=== PATIENT | male | born 1965 | race Caucasian/White ===

== ENCOUNTER 2017-07-06 19:51 | Emergency (ER) | payer SELFPAY ==
[~2017-07-06] VITALS: Ht 185.4 cm; Wt 127.0 kg
[~2017-07-06 19:51] MED LIST: ASPIRIN CHEWABL81 M1 PO; AUGMENTIN 875 M1 TA1 PO; CIPRO500 MG PO; CIPROFLOXACIN500 MG PO; FLOMAX0.4 MG PO; Lopressor25 MG PO; NAPROSYN500 MG PO; NITROSTAT0.4 MG SL; NKHM; PERCOCET 325 MG1 TA2 PO; PERCOCET 325 MG1 TA7 PO; PRILOSEC20 MG PO; Percocet 325 MG1 TAB PO; TOBRADEX 0.1%-0.5 ML OPH; VICODIN 5/500 505 MG PO; ZOFRAN ODT4 MG SL; ZOFRAN4 MG PO; [UNRECOGNIZED DRUG - REMARK]
[2017-07-06 20:29] LABS: BASO # 0.1 10*3/uL (0.0-0.1); BASO % 0.5 % (0.0-1.0); EOS # 0.2 10*3/uL (0.0-0.4); EOS % 1.2 % (1.0-4.0); HEMATOCRIT 49.7 % (42.0-52.0); HEMOGLOBIN 17.2 g/dl (14.0-18.0); LYMPH # 1.2 10*3/uL (1.3-4.4); LYMPH % 9.9 % (27.0-41.0); MEAN CELL VOLUME 90.4 fl (80.0-94.0); MEAN CORPUSCULAR HGB 31.3 pg (27.0-31.0); MEAN CORPUSCULAR HGB CONC 34.6 g/dl (33.0-37.0); MEAN PLATELET VOLUME 10.5 fl (9.6-12.3); MONO # 0.7 10*3/uL (0.1-1.0); MONO % 5.7 % (3.0-9.0); NEUT # 10.1 10*3/uL (2.3-7.9); NEUT % 82.4 % (47.0-73.0); PLATELET COUNT AUTOMATED 243 10*3/uL (130-400); RED CELL DISTRI WIDTH 12.3 % (0-14.5); WHITE BLOOD COUNT 12.3 10*3/uL (4.8-10.8)
[2017-07-06 20:44] LABS: ALBUMIN 4.6 gm/dl (3.1-4.5); ALKALINE PHOSPHATASE 60 U/L (45-117); BUN 18 mg/dl (7-24); CHLORIDE 105 mmol/L (98-107); CREATININE 1.03 mg/dL (0.70-1.30); LIPASE 311 U/L (73-393); POTASSIUM 4.7 mmol/L (3.5-5.1); SGOT/AST 20 IU/L (3-35); SGPT/ALT 45 U/L (12-78); SODIUM 138 mmol/L (136-145); TOTAL PROTEIN 8.2 gm/dL (6.4-8.2)
[2017-07-06] MEDS ORDERED: ZOFRAN ODT4 MG SL (21:10)
== END 2017-07-06 21:20 | disposition home or self-care (01) ==
LOC: ED 19:51
PROVIDERS: Physician Assistant
DX: A08.4 Viral intestinal infection, unspecified (principal); Z79.899 Other long term (current) drug therapy; Z79.82 Long term (current) use of aspirin

== ENCOUNTER 2018-10-01 09:39 | Emergency (ER) | payer SELFPAY ==
[~2018-10-01] VITALS: Ht 185.4 cm; Wt 131.5 kg
[2018-10-01] MEDS ORDERED: CEPHALEXIN500 M1 PO (09:53)
== END 2018-10-01 10:36 | disposition home or self-care (01) ==
LOC: ED 09:39
DX: S61.412A Laceration without foreign body of left hand, initial encounter (principal); Z23 Encounter for immunization; W45.8XXA Other foreign body or object entering through skin, initial encounter; Y93.89 Activity, other specified; Y92.89 Other specified places as the place of occurrence of the external cause; Y99.8 Other external cause status

== ENCOUNTER → 2024-03-18 | Outpatient (CLI) | payer SELFPAY ==
[~2024-03-18] MED LIST changes: +CEPHALEXIN500 M1 PO
[2024-03-18 13:21] LABS: BASO # 0.1 10*3/uL (0.0-0.1); BASO % 0.8 % (0.0-1.0); EOS # 0.1 10*3/uL (0.0-0.4); EOS % 1.6 % (1.0-4.0); HEMATOCRIT 45.6 % (42.0-52.0); MEAN CELL VOLUME 90.3 fl (80.0-94.0); MEAN CORPUSCULAR HGB 30.9 pg (27.0-31.0); MEAN CORPUSCULAR HGB CONC 34.2 g/dl (33.0-37.0); MEAN PLATELET VOLUME 9.8 fl (9.6-12.3); MONO # 0.6 10*3/uL (0.1-1.0); MONO % 7.3 % (3.0-9.0); NEUT # 4.5 10*3/uL (2.3-7.9); NEUT % 56.9 % (47.0-73.0); PLATELET COUNT AUTOMATED 238 10*3/uL (130-400); RED BLOOD COUNT 5.05 10*6/uL (4.50-5.90); RED CELL DISTRI WIDTH 12.2 % (0-14.5)
[2024-03-18 13:47] LABS: ALKALINE PHOSPHATASE 60 U/L (46-116); BUN 17 mg/dl (9-23); CHLORIDE 105 mmol/L (98-107); CHOLESTEROL 138 mg/dL (<200); LDL CHOLESTEROL 54 mg/dL (9-159); POTASSIUM 4.1 mmol/L (3.4-5.1); SGPT/ALT 31 U/L (5-49); TOTAL PROTEIN 7.1 gm/dL (6.0-8.0); TRIGLYCERIDES 223 mg/dl (<150)
== END | disposition home or self-care (01) ==
LOC: LAB 12:33
PROVIDERS: ATTEND Nurse Practitioner Family
DX: Z13.29 Encounter for screening for other suspected endocrine disorder (principal); Z13.1 Encounter for screening for diabetes mellitus; I10 Essential (primary) hypertension; R91.1 Solitary pulmonary nodule; E78.2 Mixed hyperlipidemia

== ENCOUNTER → 2024-10-30 | Outpatient (CLI) | payer SELFPAY | END | disposition home or self-care (01) | LOC: RESCLI 15:45 | PROVIDERS: ATTEND Internal Medicine | DX: I10 Essential (primary) hypertension (principal); R91.1 Solitary pulmonary nodule; E78.2 Mixed hyperlipidemia; I99.8 Other disorder of circulatory system; F10.10 Alcohol abuse, uncomplicated; Z79.899 Other long term (current) drug therapy; Z79.82 Long term (current) use of aspirin ==

== ENCOUNTER → 2024-12-30 | Outpatient (CLI) | payer MEDICAID | END | disposition home or self-care (01) | LOC: LAB 17:12 | PROVIDERS: ATTEND Nurse Practitioner Family | DX: L02.91 Cutaneous abscess, unspecified (principal) ==

== ENCOUNTER → 2025-01-31 | Outpatient (CLI) | payer OTHER ==
[~2025-01-31] MED LIST changes: +ATORVASTATIN CA40 M1 PO; +HYDROCHLOROTHIA25 M1 PO; +HYDROCODONE-AC1 EAC1 PO; +LISINOPRIL10 M1 PO
== END | disposition home or self-care (01) ==
LOC: WOUNDCARE 03:42
PROVIDERS: ATTEND Nurse Practitioner Family
DX: L02.91 Cutaneous abscess, unspecified (principal); L98.A1 Non-pressure chronic ulcer of upper arm; I10 Essential (primary) hypertension; E78.5 Hyperlipidemia, unspecified; Z87.891 Personal history of nicotine dependence

== ENCOUNTER → 2025-02-04 | Outpatient (CLI) | payer OTHER | END | disposition home or self-care (01) | LOC: CT 01:46 | PROVIDERS: ATTEND Nurse Practitioner Family | DX: I25.10 Atherosclerotic heart disease of native coronary artery without angina pectoris (principal); J98.11 Atelectasis; R91.1 Solitary pulmonary nodule; I70.0 Atherosclerosis of aorta; K80.20 Calculus of gallbladder without cholecystitis without obstruction; N20.0 Calculus of kidney; M47.814 Spondylosis without myelopathy or radiculopathy, thoracic region; M25.70 Osteophyte, unspecified joint ==

== ENCOUNTER → 2025-02-07 | Outpatient (CLI) | payer OTHER | LOC: WOUNDCARE 02:49 | PROVIDERS: ATTEND Nurse Practitioner Family | DX: L02.414 Cutaneous abscess of left upper limb (principal); L98.A1 Non-pressure chronic ulcer of upper arm; I10 Essential (primary) hypertension; E78.5 Hyperlipidemia, unspecified; L02.91 Cutaneous abscess, unspecified; Z87.891 Personal history of nicotine dependence ==